=== PATIENT | female | born 1945 | race Caucasian/White ===

== ENCOUNTER 2016-09-24 14:24 | Observation (INO) | payer MEDICARE, OTHER ==
[~2016-09-24] VITALS: Ht 149.9 cm; Wt 56.2 kg
[2016-09-24 16:34] LABS: ADD SCAN DIFF NO
[2016-09-24 16:36] LABS: BASOPHILS % 0.4 % (0.0-2.0); EOSINOPHILS # 0.1 10^3/ul (0.0-0.5); EOSINOPHILS % 0.6 % (0.0-7.0); HEMATOCRIT 37.4 % (37.0-47.0); HEMOGLOBIN 12.4 g/dl (12.0-16.0); LYMPHOCYTES # 2.8 10^3/ul (0.8-2.9); LYMPHOCYTES % 27.2 % (15.0-51.0); MEAN CORPUSCULAR HEMOGLOBIN 28.8 pg (29.0-33.0); MEAN CORPUSCULAR HGB CONC 33.2 g/dl (32.0-37.0); MEAN PLATELET VOLUME 9.5 fl (7.4-10.4); MONOCYTE # 0.6 10^3/ul (0.3-0.9); MONOCYTES % 5.7 % (0.0-11.0); NEUTROPHIL # 6.7 10^3/ul (1.6-7.5); NEUTROPHILS % 65.8 % (39.0-77.0); PLATELET COUNT 326 10^3/UL (140-415); WHITE BLOOD COUNT 10.2 10^3/ul (4.8-10.8)
[2016-09-24 16:45] LABS: INR 0.93; PROTIME 12.5 Sec (12.2-14.2)
[2016-09-24 16:46] LABS: PARTIAL THROMBOPLASTIN TIME 27.9 Sec (25.0-35.0)
[2016-09-24 16:50] LABS: CHLORIDE 106 mmol/L (97-110)
[2016-09-24 16:51] LABS: POTASSIUM 4.1 mmol/L (3.5-5.1); SODIUM 145 mmol/L (135-144)
[2016-09-24 16:53] LABS: CREATININE 0.66 mg/dl (0.44-1.00)
--- NOTE | 2016-09-24 16:53 | RADRPT ---
PROCEDURE: XR Chest. CLINICAL INDICATION: Chest pain. TECHNIQUE: Single frontal view. COMPARISON: None. FINDINGS: There is mild bilateral interstitial pulmonary disease in the mid and lower lung zones. The lungs a re otherwise clear. The heart size is normal. There is no pleural effusion. There is no pneumothorax. IMPRESSION: 1. Mild interstitial disease bilaterally in the mid and lower lung zones. This may indicate pulmon braulio edema. Clinical correlation is advised. 2. Otherwise normal chest x-ray. RPTAT: QQ .Mitchel Rodriguez MD, MD Date Time Electronically viewed and signed by .Mitchel Rodriguez MD, MD on 09/24/2016 16:53 .R/
[2016-09-24 16:54] LABS: ANION GAP 14 (8-16); BLOOD UREA NITROGEN 18 mg/dl (7-20); CALCIUM 10.8 mg/dl (8.4-10.2); CARBON DIOXIDE 29 mmol/L (21-31); GLUCOSE 112 mg/dl (70-220)
[2016-09-24] MEDS ORDERED: AMIT50TA3 PO (17:22)
[2016-09-24] MEDS ORDERED: MECL-90 PO (17:23)
[2016-09-24] MEDS ORDERED: TRAZ50TA18 PO (17:24)
[2016-09-24] MEDS ORDERED: PRAV40TA76 PO (17:24)
[2016-09-24 17:32] LABS: TROPONIN-I < 0.012 ng/ml (0.00-0.12)
--- NOTE | 2016-09-24 18:21 | RADRPT ---
PROCEDURE: CT Brain without. CLINICAL INDICATION: Dizziness. TECHNIQUE: A CT of the brain was performed on multidetector high-resolution CT scanner utilizing a xial sections from the skull base through the vertex without contrast. The scan was reviewed in sof t tissue brain and high frequency resolution bone algorithm windows. Images were reviewed on a high -resolution PACS workstation. One or more the following does reduction techniques were utilized: Aut omated exposure control, adjustment of the mA/ or kV according to patient's size, or use of iterativ e reconstruction technique. The exam CTDI = 39.3 mGy and the DLP = 554.95 mGy-cm. COMPARISON: None available. FINDINGS: The ventricles and sulci are mildly prominent indicative of volume loss. There is mild cerebellar vo lume loss. There is no intracranial hemorrhage or midline shift. No abnormal intra-axial or extra- axial fluid collections are seen. The gutierrez/white matter differentiation is preserved. There is a 9 x 6 x 9 mm(AP x transverse x craniocaudal) calcified mass along the left side of the anterior falx c erebri which may represent a calcified meningioma. There is minimal mass effect on adjacent left fr ontal lobe. There are mild scattered foci of hypoattenuation in the white matter, which are nonspecific in etiol ogy but likely reflect chronic small vessel ischemic changes. There are mild intracranial vascular calcifications consistent with atherosclerosis. The visualized paranasal sinuses small mucoid secret ion in the left sphenoid sinus. The mastoid air cells are essentially clear. IMPRESSION: 1. A 9 mm calcified mass along the left side of the anterior falx cerebri which may represent a calc ified meningioma. Minimal mass effect on adjacent left frontal lobe. 2. No acute intracranial hemorrhage or transcortical infarction. 3. Mild intracranial atherosclerosis and chronic small vessel ischemic changes. 4. Mild generalized cerebral volume loss. RPTAT: HH .Nathan Crane MD, MD Date Time Electronically viewed and signed by .Nathan Crane MD, MD on 09/24/2016 18:21 .N/
[2016-09-24 18:30] VITALS: TEMP 98
[2016-09-24] MEDS ORDERED: SOD CHLORIDE 0.9% 1,000 ML IV ONE (18:30)
[2016-09-24] MEDS ORDERED: HYDROCODONE/APAP (7.5/325) TAB PO ONE (19:00)
--- NOTE | 2016-09-24 20:11 | HP ---
Date/Time of Note Date/Time of Note DATE: 09/24/16 TIME: 20:11 Assessment/Plan VTE Prophylaxis VTE Prophylaxis Intervention: ambulation, anti-embolic stocking Assessment/Plan Assessment/Plan 1) Dizziness - Admit to Tele for 24 hours of cardiac monitoring, then to [facility] if no significant findings. - CONSULT: Neuro - Message left for Dr. Novak at [phone] 2) Abnormal finding on Brain CT (doubt is it the cause of her symptoms, suspect incidental finding) 3) GERD - Continue Pantoprazole 4) Anxiety - Continue Home Meds: Trazodone and Amitryptiline. (Stopping them abruptly may add to her dizziness.) 5) Microscopic Hematuria with recent history of same - asymptomatic - Urine Culture pending HPI/ROS Admit Date/Time Admit Date/Time Hx of Present Illness Patient presents to the Emergency Department with complaint of a headache for 4 days. As she walks, her head will be pulled to one side or the other. Per ER Physician, her work-up was completely negative, except for an incidental finding of a 9mm calcification in the brain. He doubts that this is the source of her dizziness, but recommends admission for a Neurology Consult. Patient tells me that a couple of years ago, she had the same thing, for the first time, and was told it was an inner ear issue. Since the first episode, patient has occasional symptoms and takes Meclizine for them. This time, her symptoms have been more frequent and worsening over the past week. The first time she had the dizziness this week, she felt nauseated and vomited once. When she has the dizziness, her vision will get wavy lines in it. No current vision changes. Mild headache right now. Feels dizzy. History is obtained first, verbal from Dr. Wood, and then through a combination machine tender at patient's bedside. ROS Constitutional: No chills, No febrile Eyes: visual change (wavy lines in vision when she gets dizzy) ENT: No congestion, No dysphagia, No sore throat Respiratory: No cough, No shortness of breath Cardiovascular: lightheadedness, No chest pain, No edema, No palpitations Gastrointestinal: constipation (earlier this week), nausea (1 week ago. Not presently), other (Pain in epigastrium (where she points). States that if she presses on that area, she feels a pain in her right shoulder and right upper back.), vomiting (Once, about a week ago when her dizziness got worse), No diarrhea Genitourinary: hematuria (No visible blood, but 2 to 3 months ago, blood was found in her urine.), No discharge, No dysuria, No flank pain Musculoskeletal: back pain (Minimal, chronic pain mid-back. No change.), neck pain (Muscles in her neck are a bit tight), other (Mentions trigger fingers: 3rd digits bilaterally), No restricted range of motion Skin: No pruritis, No rash Neurologic: dizziness, headache, other (Moth hands feel numb. No shooting pains in the extremities.), No confusion, No focal-weakness, No seizure, No syncope Endocrine: No polydypsia, No polyuria Lymphatic: No adenopathy, No tender nodes Psychological: anxiety, No confusion Immunologic: No pruritis, No rhinitis PMH/Family/Social Past Medical History Medical History: GERD, other (Anxiety) Past Surgical History Past Surgical Hx: other (VALENTE, 1SO) Family History Significant Family History: no pertinent family hx Social History Alcohol Use: none Smoking Status: Current some day smoker Drug Use: none Exam/Review of Systems Vital Signs Vitals Vital Signs Date Time Temp Pulse Resp B/P Pulse Ox O2 Delivery O2 Flow Rate FiO2 09/24/16 18:30 98.0 89 20 146/96 99 Room Air Exam Constitutional: alert, oriented, well developed Psych: nl mood/affect Head: atraumatic, normocephalic Eyes: nl conjunctiva, nl sclera ENMT: mucosa pink and moist, nl external ears & nose, nl lips & teeth Neck: non-tender, supple Respiratory: clear to auscultation, normal air movement Cardiovascular: nl pulses, regular rate and rhythm Gastrointestinal: nl liver, spleen, non-tender, soft Musculoskeletal: nl extremities to inspection Extremities: normal pulses Neurological: [employer] II-XII intact, DTR's symmetric, nl mental status, nl speech, nl strength Skin: nl turgor (Normal moisture and temperature. Novisible rash) Lymph: nl lymph nodes (Cervical) Labs Result Diagram: 09/24/16 1620 09/24/16 1620 Procedures Procedures RADIOLOGY: PROCEDURE: CT Brain without. CLINICAL INDICATION: Dizziness. TECHNIQUE: A CT of the brain was performed on multidetector high-resolution CT scanner utilizing axial sections from the skull base through the vertex without contrast. The scan was reviewed in soft tissue brain and high frequency resolution bone algorithm windows. Images were reviewed on a high- resolution PACS workstation. One or more the following does reduction techniques were utilized: Automated exposure control, adjustment of the mA/ or kV according to patient's size, or use of iterative reconstruction technique. The exam CTDI = 39.3 mGy and the DLP = 554.95 mGy-cm. COMPARISON: None available. FINDINGS: The ventricles and sulci are mildly prominent indicative of volume loss. There is mild cerebellar volume loss. There is no intracranial hemorrhage or midline shift. No abnormal intra-axial or extra-axial fluid collections are seen. The gutierrez/white matter differentiation is preserved. There is a 9 x 6 x 9 mm(AP x transverse x craniocaudal) calcified mass along the left side of the anterior falx cerebri which may represent a calcified meningioma. There is minimal mass effect on adjacent left frontal lobe. There are mild scattered foci of hypoattenuation in the white matter, which are nonspecific in etiology but likely reflect chronic small vessel ischemic changes. There are mild intracranial vascular calcifications consistent with atherosclerosis. The visualized paranasal sinuses small mucoid secretion in the left sphenoid sinus. The mastoid air cells are essentially clear. IMPRESSION: 1. A 9 mm calcified mass along the left side of the anterior falx cerebri which may represent a calcified meningioma. Minimal mass effect on adjacent left frontal lobe. 2. No acute intracranial hemorrhage or transcortical infarction. 3. Mild intracranial atherosclerosis and chronic small vessel ischemic changes. 4. Mild generalized cerebral volume loss. PROCEDURE: XR Chest. CLINICAL INDICATION: Chest pain. TECHNIQUE: Single frontal view. COMPARISON: None. FINDINGS: There is mild bilateral interstitial pulmonary disease in the mid and lower lung zones. The lungs are otherwise clear. The heart size is normal. There is no pleural effusion. There is no pneumothorax. IMPRESSION: 1. Mild interstitial disease bilaterally in the mid and lower lung zones. This may indicate pulmonary edema. Clinical correlation is advised. 2. Otherwise normal chest x-ray. CHRISTOPHER MARTINEZ DO Sep 24, 2016 20:11
[2016-09-24] MEDS ORDERED: ONDANSETRON 4 MG INJ IV PRN ×2 (20:30→22:00)
[2016-09-24] MEDS ORDERED: ACETAMINOPHEN 325 MG TAB PO PRN ×2 (20:30→22:00)
[2016-09-24 21:12] LABS: ADD UMIC YES; URINE BILIRUBIN (Dip) NEGATIVE (NEGATIVE); URINE BLOOD (Dip) 2+ (NEGATIVE); URINE COLOR LT. YELLOW (YELLOW); URINE GLUCOSE (Dip) NEGATIVE (NEGATIVE); URINE KETONES (Dip) NEGATIVE (NEGATIVE); URINE LEUKOCYTE ESTERASE (Dip) 1+ (NEGATIVE); URINE NITRITE (Dip) NEGATIVE (NEGATIVE); URINE TOTAL PROTEIN (Dip) NEGATIVE (NEGATIVE); URINE UROBILINOGEN (Dip) 0.2 E.U./dL (0.1-1.0)
[2016-09-24 21:40] LABS: SQUAMOUS EPITHELIAL CELL,UR FEW; URINE RBCS 0-2 /HPF (0)
[2016-09-24 22:00] VITALS: BP 144/72; PULSE 67; RESP 18; Ht 149.9 cm; Wt 56.2 kg
[2016-09-24] MEDS ORDERED: ONDANSETRON 4 MG TAB PO PRN (22:00)
[2016-09-24] MEDS ORDERED: NITROGLYCERIN (SL) 0.4 MG TAB SL PRN (22:00)
[2016-09-24] MEDS ORDERED: NACL 0.9% 3 ML SYG IV SCH (22:00)
[2016-09-24 22:55] VITALS: BP 144/72; RESP 18
[2016-09-24] MEDS ORDERED: AMITRIPTYLINE 50 MG TAB PO SCH (23:00)
[2016-09-24] MEDS: traZODone 50 MG TAB PO SCH (23:14)
[2016-09-24] MEDS: AMITRIPTYLINE 25 MG TAB PO SCH (23:14)
--- NOTE | 2016-09-24 23:52 | ERA ---
ER Documentation Chief Complaint Date/Time DATE: 09/24/16 TIME: 23:43 Chief Complaint HEADACHE AND DIZZINESS WITH NO NEURO DEFICIT. NO RECENT INJURY. HPI This 71-year-old female presents to the ER with intermittent headache on and off for 4 days. Headache is in different locations at different times and is intermittent. She is also having a feeling that she is falling to one side or the other all the side changes. She says that is very difficult to ambulate because of this dizziness that she does not quite describe as vertigo. Denies any chest pain shortness of breath fever chills. Denies any focal weakness. ROS All systems reviewed and are negative except as per history of present illness. Medications Home Meds Reported Medications Pravastatin Sodium* (Pravastatin Sodium*) 40 Mg Tablet, 40 MG PO DAILY, TAB 09/24/16 Trazodone Hcl* (Trazodone Hcl*) 50 Mg Tablet, 50 MG PO QHS, #30 TAB 09/24/16 Meclizine Hcl* (Bonine*) 25 Mg Tab.chew, 25 MG PO DAILY Y for VERTIGO, TAB.CHEW 09/24/16 Amitriptyline Hcl* (Amitriptyline Hcl*) 50 Mg Tablet, 50 MG PO QHS, #30 TAB 09/24/16 Allergies Allergies: Coded Allergies: No Known Allergy (Unverified , 09/24/16) PMhx/Soc History of Surgery: No Anesthesia Reaction: No Hx Neurological Disorder: No Hx Respiratory Disorders: No Hx Cardiac Disorders: Yes (HTN) Hx Psychiatric Problems: Yes (DEPRESSION) Hx Miscellaneous Medical Probl: No Hx Alcohol Use: No Hx Substance Use: No Hx Tobacco Use: Yes Smoking Status: Current some day smoker Physical Exam Vitals Vital Signs Date Time Temp Pulse Resp B/P Pulse Ox O2 Delivery O2 Flow Rate FiO2 09/24/16 20:00 91 18 139/80 98 Room Air 09/24/16 18:30 98.0 89 20 146/96 99 Room Air 09/24/16 14:28 98.0 80 20 148/82 98 Physical Exam Const: [] No distress Head: Atraumatic Eyes: Normal Conjunctiva, EOMI, CHARLY ENT: Normal External Ears, Nose and Mouth. Tympanic membranes clear bilaterally Neck: Full range of motion..~ No meningismus. Resp: Clear to auscultation bilaterally Cardio: Regular rate and rhythm, no murmurs Abd: Soft, non tender, non distended. Normal bowel sounds Skin: No petechiae or rashes Back: No midline or flank tenderness Ext: No cyanosis, or edema Neur: Awake and alert and oriented 3, cranial nerves II through XII intact, no cerebellar deficits, gait not tested because patient did not want to Psych: Normal Mood and Affect Result Diagram: 09/24/16 1620 09/24/16 1620 Results 24 hrs Laboratory Tests Test 09/24/16 16:20 09/24/16 18:30 Activated Partial Thromboplast Time 27.9Sec Anion Gap 14 Basophils # 0.010^3/ul Basophils % 0.4% Blood Urea Nitrogen 18mg/dl Calcium Level 10.8mg/dl Carbon Dioxide Level 29mmol/L Chloride Level 106mmol/L Creatinine 0.66mg/dl Eosinophils # 0.110^3/ul Eosinophils % 0.6% Glucose Level 112mg/dl Hematocrit 37.4% Hemoglobin 12.4g/dl INR International Normalized Ratio 0.93 Lymphocytes # 2.810^3/ul Lymphocytes % 27.2% Mean Corpuscular Hemoglobin 28.8pg Mean Corpuscular Hemoglobin Concent 33.2g/dl Mean Corpuscular Volume 87.0fl Mean Platelet Volume 9.5fl Monocytes # 0.610^3/ul Monocytes % 5.7% Neutrophils # 6.710^3/ul Neutrophils % 65.8% Nucleated Red Blood Cells # 0.010^3/ul Nucleated Red Blood Cells % 0.0/100WBC Platelet Count 89601^3/UL Potassium Level 4.1mmol/L Prothrombin Time 12.5Sec Prothrombin Time Ratio 1.0 Red Blood Count 4.3010^6/ul Red Cell Distribution Width 12.0% Sodium Level 145mmol/L Troponin I < 0.012ng/ml White Blood Count 10.210^3/ul Urine Bilirubin NEGATIVE Urine Calcium Oxalate Crystals FEW Urine Clarity CLEAR Urine Color LT. YELLOW Urine Glucose NEGATIVE% Urine Hemoglobin 2+ Urine Ketones NEGATIVE Urine Leukocyte Esterase 1+ Urine Microscopic RBC 0-2/HPF Urine Microscopic WBC 0-2/HPF Urine Nitrite NEGATIVE Urine Specific [place] 1.020 Urine Squamous Epithelial Cells FEW Urine Total Protein NEGATIVE Urine Urobilinogen 0.2 E.U./dL Urine pH 6.0 Current Medications Medications (Trade) Dose Ordered Sig/Bridgett Route PRN Reason Start Time Stop Time Status Last Admin Dose Admin Sodium Chloride (NS) 1,000 ml @ 1,000 mls/hr Q1H ONCE IV 09/24/16 18:30 09/24/16 19:29 DC 09/24/16 19:15 Acetaminophen/ Hydrocodone Bitart ([place] (7.5-325)) 1 tab ONCE ONCE PO 09/24/16 19:00 09/24/16 19:01 DC 09/24/16 19:25 Procedures/MDM 71-year-old female with difficulty ambulating secondary to dizziness and falling sideways associated with a headache. She incidentally has a 9 mm lesion with some mass-effect. I spoke with Dr. Sherman, neurosurgery on-call who believes this is an incidental finding that does not describe her symptoms in any way. We have the patient should be admitted for neurology consult and monitoring. I do not currently suspect cerebrovascular accident. Patient was given [place] for her headache which greatly improved her headache. There is no hemorrhage on CT. no signs of acute coronary syndrome or cardiac defects. I am admitting to the patient to Dr. Lyman, for the neurological evaluation. CT head interpretation: 9 mm calcified lesion in the anterior cerebral falx with minimal mass-effect. No hemorrhage no obvious ischemic stroke, no skull fracture. Chest x-ray interpretation: No acute process, I see no infiltrate, no pneumothorax, no pulmonary edema, no fractures EKG interpretation: Normal sinus rhythm rate of 68, normal axis, single PVC, no ST or T-wave changes concerning for acute ischemia monitor tech interpretation: Normal sinus rhythm without arrhythmia Departure Diagnosis: Primary Impression: Brain lesion Additional Impressions: Dizziness Headache Condition: Stable JARETJASONEDIS GALO Sep 24, 2016 23:51
[2016-09-25] MEDS: PANTOPRAZOLE (EC) 40 MG TAB PO SCH (06:08)
[2016-09-25 08:02] VITALS: BP 137/72; RESP 18
[2016-09-25] MEDS: MECLIZINE 12.5 MG TAB PO SCH ×4 (09:30→20:36)
--- NOTE | 2016-09-25 09:31 | CONS ---
Date/Time of Note Date/Time of Note DATE: 09/25/16 TIME: 09:29 Copies To: Additional comments: neuro consult dictated BPPV, start meclizine OTC, PT with vestibular exercises Meningioma on CT, will get MRI OK for d/c after MRI BEVERLEY MALLOY MD Sep 25, 2016 09:31
--- NOTE | 2016-09-25 10:59 | CONS ---
DATE OF ADMISSION: 09/24/2016 DATE OF CONSULTATION: 09/25/2016 TYPE OF CONSULTATION: Neurology. Thank you, Dr. Lyman, for your kind referral for evaluation of vertigo. HISTORY OF PRESENT ILLNESS: The patient is a 71-year-old lady presented with 3 to 4 days of vertigo present constantly but worsening with movements. No hearing problems or tinnitus. No weakness, nu mbness anywhere in the body. No diplopia, dysarthria, dysphagia. The patient had similar episode o f vertigo 7 to 8 years ago and since that time she is taking meclizine every several days preventati vely. She was told that it was related to calcifications in the inner ear at that time. MEDICATIONS: The patient's home medications: 1. Pravastatin 40. 2. Amitriptyline 50. 3. Trazodone 50. 4. Meclizine 25 once per day, but she does not take it on a regular basis. ALLERGIES: NONE. SOCIAL HISTORY: Cigarette smoker. No alcohol or drug use. FAMILY HISTORY: Noncontributory. REVIEW OF SYSTEMS: Patient also complains of chronic headache at least for 15 years since her arriv al to the [facility], usually bilateral occipital or left-sided at times throbbing, at times pres sure pain which is present essentially daily. Usually no nausea with the headache may occur with sev ere headache, nausea and photophobia. MEDICATIONS: Here she is on 1. Pantoprazole. 2. Elavil 50. 3. Trazodone 50. She had CAT scan of the head which shows presence of calcified meningioma 9 mm on the left side of t he anterior falx. No mass effect. Chest x-ray: Mild interstitial disease mid and lower lung zones, may indicate pulmonary edema but c linical correlation is recommended. Her labs show normal CBC, essentially normal basic metabolic pa kadi: Sodium 145, calcium 11, normal PT, PTT. Urinalysis 1+ leukocyte esterase, 2+ hemoglobin. PHYSICAL EXAMINATION: VITAL SIGNS: On examination 98.2 temperature, pulse 79, 18 respirations, blood pressure 137/72. GENERAL: Not in acute distress, lying in bed. HEENT: Normocephalic, atraumatic head. NECK: No carotid bruits. No thyromegaly. LUNGS: Clear to auscultation bilaterally. CARDIAC: Normal cardiac rhythm and sounds. ABDOMEN: Soft, nontender. EXTREMITIES: No cyanosis, clubbing or edema. NEUROLOGIC: She is awake, alert, and oriented x3 with fluent speech. Cranial nerve examination vladimir ws intact visual ayala bilaterally. Pupils round, reactive to light from 4 to 2 mm bilaterally. E xtraocular movements intact without nystagmus. Symmetrical face. Preserved facial strength and sen sation. Tongue is in midline. Palate elevates symmetrically. Motor strength examination preserved in all extremities. Normal bulk, tone, and strength. Sensory examination grossly intact to light touch and pain. Deep tendon reflexes 2+ upper extremities, 3 lower extremities. Downgoing toes jessica aterally. Coordination preserved on [id number] testing. During my examination, the patient d eveloped generalized tremulousness, stating that she is somewhat anxious. Bronson-Hallpike maneuver was performed and produced vertigo when patient was seated up from supine posi tion with her head turned to either side but more severe when the head was turned to the left, also with short lasting rotatory nystagmus, beating to the left. IMPRESSION: Episodic vertigo, similar episode 7 to 8 years ago, last started about 4 days ago. I w ould increase meclizine, make it 2 to 3 times per day. The patient was uncomfortable with Bronson-Hallp chandrika maneuver because of the dizziness, so I did not perform any repositioning maneuver. I would get physical therapy to teach her repositioning maneuvers and try to perform one. Will increase mecliz ine, as I mentioned. Newly diagnosed falx meningioma. I would obtain MRI with contrast for better visualization and to h ave her baseline, it seems to be calcified, slowly growing so probably she would need some followup imaging done in 6 to 12 months. From my perspective, the patient could be discharged home after MRI with stronger dose of meclizine. Thank you very much for this interesting consult. Dictated By: BEVERLEY REEVES/FREDDIE Conf#: [id number] DID#: [id number]
[2016-09-25] MEDS ORDERED: LORAZEPAM 0.5 MG TAB PO PRN (16:30)
[2016-09-25] MEDS ORDERED: LORAZEPAM 2 MG INJ IV PRN (16:30)
--- NOTE | 2016-09-25 18:21 | RADRPT ---
PROCEDURE: MRI Brain without and with contrast. CLINICAL INDICATION: Vertigo, meningioma TECHNIQUE: Multiplanar MRI of the brain without and with contrast was performed on a 3.0 T scanner with the following sequences obtained: T1-weighted, T2-weighted/FLAIR, diffusion weighted (with ADC map), GRE, postcontrast T1-weighted. 810 cc Magnevist intravenous contrast administered. COMPARISON: CT brain 09/24/2016 FINDINGS: No acute/recent ischemic infarction or intracranial hemorrhage / blood degradation products are iden tified. No extra-axial fluid collection is seen. There is a small extra-axial dural-based lesion along the anterior left aspect of the falx, which en hances, and has intermediate T1-weighted and decreased T2-weighted signal intensity with relative ingram sceptibility on GRE. It measures 9 x 6 x 8 mm (AP x transverse x CC) and is compatible with a menin gioma which may contain calcifications. No significant mass effect is identified. There is no midl ine shift. The ventricles and sulci are mildly enlarged, compatible with volume loss. Mild areas of increased T2 / FLAIR signal intensity are present in the periventricular and deep whit e matter, nonspecific but likely related to chronic small vessel ischemic changes. Flow voids are identified in the proximal intracranial arteries and dural sinuses suggesting patency . Secretions noted in the left sphenoid sinus. IMPRESSION: 1. No evidence of acute intracranial pathology. 2. 9 mm anterior left parafalcine meningioma. 3. Mild volume loss, with mild chronic small vessel ischemic changes. RPTAT: TT .Neil Real MD, Date Time Electronically viewed and signed by .Neil Real MD, on 09/25/2016 18:21 .O/
[2016-09-25 19:00] VITALS: BP 131/73; RESP 18
--- NOTE | 2016-09-25 20:03 | PN ---
Date/Time of Note Date/Time of Note DATE: 09/25/16 TIME: 20:00 Assessment/Plan VTE Prophylaxis VTE Prophylaxis Intervention: ambulation, SCD's Lines/Catheters IV Catheter Type (from Nrs): Saline Lock Urinary Cath still in place: No Assessment/Plan Assessment/Plan 71 yo F with 1 Dizziness 2/2 BPPV, per neurology start meclizine OTC, PT with vestibular exercises 2. Meningioma on CT MRI pending, f/u findings 3. GERD: home meds 4. Chronic anxiety: PRN ativan , home meds Supportive care. Subjective 24 Hr Interval Summary Free Text/Dictation Patient seen and examined. reports dizziness is mildly improved MRI still pending Exam/Review of Systems Vital Signs Vitals Vital Signs Date Time Temp Pulse Resp B/P Pulse Ox O2 Delivery O2 Flow Rate FiO2 09/25/16 08:02 98.2 79 18 137/72 99 09/24/16 22:00 Room Air Intake and Output 09/24/16 09/24/16 09/25/16 15:00 23:00 07:00 Intake Total 240 ml Output Total 400 ml Balance -160 ml Exam GENERAL: Patient is alert, oriented x 3, in no apparent distress; does not appear acutely or chronically ill. Patient is able to sit up unassisted.Patient makes good eye contact, is conversant, interactive, coherent. Patient appears calm and comfortable and is able to follow commands. Quite anxious however. HEENT: Oropharynx is clear. There is no carotid bruit, no masses. Patient's pupils are equal, round and reactive to light bilaterally. Extraocular motions are intact. There is no scleral icterus. There is no facial asymmetry. NECK: Supple. LUNGS: Clear to auscultation bilaterally with good air entry. No Wheezes or crackles. HEART: S1, S2. No murmur, gallops or rubs. Regular rate and rhythm. ABDOMEN: Soft, nontender. Normoactive bowel sounds. There are no stigmata of chronic liver disease. BACK: no costovertebral angle tenderness. GENITOURINARY: Deferred. EXTREMITIES: No edema. There is no cyanosis, clubbing. There are 2+ pulses bilaterally distally. NEUROLOGIC: The patient has no lateralizing signs. Cranial nerves II-XII are intact. SKIN: Otherwise, unremarkable. Results Result Diagram: 09/24/16 1620 09/24/16 1620 Medications Medications Current Medications Ondansetron HCl (Zofran Tab) 4 mg Q6H PRN PO NAUSEA AND/OR VOMITING; Start 09/24 at 22:00 Ondansetron HCl (Zofran Inj) 4 mg Q6H PRN IV NAUSEA AND/OR VOMITING; Start 09/24 at 22:00 Nitroglycerin (Nitroglycerin (Sl Tab) 0.4 Mg) 1 tab Q5M PRN SL CHEST PAIN; Start 09/24/16 at 22:00 Acetaminophen (Tylenol Tab) 650 mg Q6H PRN PO PAIN LEVEL 1-3 OR FEVER; Start at 22:00 Pantoprazole (Protonix Tab) 40 mg DAILY@06 PO Last administered on 09/25/16 06: 08; Admin Dose 40 MG; Start 09/25/16 at 06:00 Trazodone HCl (Desyrel) 50 mg HS PO Last administered on 09/24/16 23:14; Admin Dose 50 MG; Start 09/24/16 at 22:30 Amitriptyline HCl (Elavil) 50 mg HS PO ; Start 09/24/16 at 23:30 Meclizine HCl (Antivert) 12.5 mg TID PO Last administered on 09/25/16 13:42; Admin Dose 12.5 MG; Start 09/25/16 at 09:30 Lorazepam (Ativan) 0.5 mg Q8H PRN IV anxiety; Start 09/25/16 at 16:30 PRINCESS TRACY Sep 25, 2016 20:03
[2016-09-25] MEDS: traZODone 50 MG TAB PO SCH (20:37)
[2016-09-25] MEDS: AMITRIPTYLINE 25 MG TAB PO SCH (20:37)
[2016-09-26 06:04] LABS: ADD SCAN DIFF NO
[2016-09-26 06:20] LABS: ALBUMIN 3.9 g/dl (3.3-4.9); POTASSIUM 4.2 mmol/L (3.5-5.1)
[2016-09-26 06:22] LABS: BILIRUBIN,INDIRECT 0.3 mg/dl (0-1.1); BILIRUBIN,TOTAL 0.3 mg/dl (0.2-1.3)
[2016-09-26 06:23] LABS: CREATININE 0.7 mg/dl (0.44-1.00); TOTAL PROTEIN 6.6 g/dl (6.1-8.1)
[2016-09-26] MEDS: PANTOPRAZOLE (EC) 40 MG TAB PO SCH (06:23)
[2016-09-26 06:24] LABS: CALCIUM 11.1 mg/dl (8.4-10.2); PHOSPHORUS 3.9 mg/dl (2.5-4.9)
[2016-09-26 06:31] LABS: BASOPHILS % 0.3 % (0.0-2.0); EOSINOPHILS # 0.2 10^3/ul (0.0-0.5); EOSINOPHILS % 1.7 % (0.0-7.0); HEMATOCRIT 37.9 % (37.0-47.0); HEMOGLOBIN 12.5 g/dl (12.0-16.0); LYMPHOCYTES # 3.4 10^3/ul (0.8-2.9); MEAN CORPUSCULAR HEMOGLOBIN 28.7 pg (29.0-33.0); MEAN CORPUSCULAR VOLUME 86.9 fl (82.0-101.0); MEAN PLATELET VOLUME 9.7 fl (7.4-10.4); MONOCYTE # 0.7 10^3/ul (0.3-0.9); MONOCYTES % 7.8 % (0.0-11.0); NEUTROPHIL # 4.9 10^3/ul (1.6-7.5); NEUTROPHILS % 52.8 % (39.0-77.0); PLATELET COUNT 287 10^3/UL (140-415); RED BLOOD COUNT 4.36 10^6/ul (4.20-5.40); RED CELL DISTRIBUTION WIDTH 11.8 % (11.5-14.5); WHITE BLOOD COUNT 9.2 10^3/ul (4.8-10.8)
[2016-09-26 08:01] VITALS: BP 124/68; RESP 18
[2016-09-26] MEDS: MECLIZINE 12.5 MG TAB PO SCH ×2 (08:21→13:45)
[2016-09-26] MEDS ORDERED: MECL12.574 PO (12:25)
--- NOTE | 2016-09-26 12:34 | PDOCDIS ---
Discharge Instructions DIAGNOSIS Discharge Diagnosis: Benign positional Vertigo CONDITION Patient Condition: Stable HOME CARE INSTRUCTIONS: Diet Instructions: Low Fat /Cholesterol FOLLOW UP/APPOINTMENTS Appointments Fall precautions / FWW OTHER ORDERS: Other Orders: Go to Dr Owens's office right away for ENT review Name, Degree: Curtis Owens MD Specialty: Ear Nose Throat Comments: Office Address: [address] [place] [address] Office Office PRINCESS TRACY Sep 26, 2016 12:33
== END 2016-09-26 14:10 | disposition home or self-care (01) ==
LOC: E/R 14:24 → UNDOADMIN 20:17 → MS2 20:17 → INTOOBSV 20:19 → MS2 22:02
PROVIDERS: ADMIT Family Medicine; ATTEND Family Medicine
DX: R42 Dizziness and giddiness (principal)
CPT/HCPCS: 70450; 70553; 71010; 80048; 80076; 81001; 83735; 84100; 84484; 85025; 85610; 85730; 93005; 97161; 99285; G0378; J7030; 81003; 99217

== ENCOUNTER 2019-01-17 11:12 | Emergency (ER) | payer MEDICARE, OTHER ==
[~2019-01-17] VITALS: Ht 152.4 cm; Wt 60.7 kg
[~2019-01-17 11:12] MED LIST: AMIT50TA3 PO; MECL12.574 PO; PRAV40TA76 PO; TRAZ-111 PO
[2019-01-17 11:20] VITALS: BP 144/71; PULSE 72; RESP 18; Ht 152.4 cm; Wt 60.7 kg
[2019-01-17] MEDS ORDERED: KETOROLAC 15 MG INJ IM STA (12:44)
--- NOTE | 2019-01-17 12:48 | ERD ---
ER Documentation Chief Complaint Chief Complaint left buttucks pain radiating down leg x4 days HPI 73-year-old female, with history of chronic lumbar pain, presents to the emergency department, complaining of acute exacerbation the last 4 days in an absence of trauma. The pain is sharp, constant, 7/10, worsened by lateral rotation and flexion. The patient denies distal weakness, numbness or tingling. No reports of fever, chills, abdominal pain or urinary symptoms. The patient has been taking gabapentin without improvement of the symptoms. ROS All systems reviewed and are negative except as per history of present illness. Medications Home Meds Active Scripts Acetaminophen* (Tylenol*) 325 Mg Tablet, 1 TAB PO Q8 PRN for PAIN AND OR ELEVATED TEMP, #20 TAB Prov:TORITO BEARD MD 01/17/19 Baclofen* (Baclofen*) 10 Mg Tablet, 10 MG PO QHS PRN for MUSCLE SPASMS, #10 TAB Prov:TORITO BEARD MD 01/17/19 Hydrocodone/Acetaminophen ([place] 5-325 Tablet) 1 Each Tablet, 1 TAB PO BID PRN for PAIN, #10 TAB Prov:TORITO BEARD MD 01/17/19 Meclizine Hcl* (Antivert*) 12.5 Mg Tab, 12.5 MG PO TID for 30 Days, TAB Prov:PRINCESS TRACY 09/26/16 Reported Medications Pravastatin Sodium* (Pravastatin Sodium*) 40 Mg Tablet, 40 MG PO DAILY, TAB 09/24/16 Trazodone Hcl* (Trazodone Hcl*) 50 Mg Tablet, 50 MG PO QHS, #30 TAB 09/24/16 Amitriptyline Hcl* (Amitriptyline Hcl*) 50 Mg Tablet, 50 MG PO QHS, #30 TAB 09/24/16 Allergies Allergies: Coded Allergies: No Known Allergy (Unverified , 09/24/16) PMhx/Soc Medical and Surgical Hx: pt denies Surgical Hx History of Surgery: No Anesthesia Reaction: No Hx Neurological Disorder: No Hx Respiratory Disorders: No Hx Cardiac Disorders: Yes (HTN) Hx Psychiatric Problems: Yes (DEPRESSION) Hx Miscellaneous Medical Probl: Yes (DIZZINESS, GERD, ANXIETY) Hx Alcohol Use: No Hx Substance Use: No Hx Tobacco Use: Yes Smoking Status: Current every day smoker FmHx Family History: No diabetes, No coronary disease Physical Exam Vitals Vital Signs Date Temp Pulse Resp B/P (MAP) Pulse Ox O2 O2 Flow FiO2 Time Delivery Rate 01/17/19 98.1 72 18 144/71 97 11:20 (95) Physical Exam Patient is in no acute distress, vital signs stable. Alert and fully oriented. EYES: PERRLA, EOMI, Sclera and conjunctiva appear normal. EARS: Canals clear, tympanic membranes WNL THROAT: Normal oropharynx. NECK: Supple, No lymphadenopathy. Full ROM without pain or tenderness. HEART: RRR, no rubs, murmurs, clicks or gallops. LUNGS: Clear to auscultation. ABDOMEN: Soft, non-tender without masses or hepatosplenomegaly. EXTREMITIES: No edema bilaterally. BACK: Normal inspection, no bruises, no rashes, no deformity, decreased range of motion for lateral rotation and flexion. No vertebral tenderness, bilateral lower muscle spasm. NEURO: Cranial nerves grossly intact, no motor or sensory deficit Results 24 hrs Laboratory Tests Test 01/17/19 12:58 Bedside Urine pH (LAB) 5.5 Bedside Urine Protein (LAB) Negative Bedside Urine Glucose (UA) Negative Bedside Urine Ketones (LAB) Negative Bedside Urine Blood 2+ Bedside Urine Nitrite (LAB) Negative Bedside Urine Leukocyte Esterase (L Negative Current Medications Medications Dose Sig/[place] Start Time Status Last (Trade) Ordered Route PRN Stop Time Admin Dose Reason Admin Ketorolac 15 mg ONCE STAT 01/17/19 DC 01/17/19 Tromethamine IM 12:44 01/17/19 12:54 (Toradol) 12:47 DIAGNOSTIC IMAGING REPORT Patient: BLAS RICARDO : 1945 Age: 73 Sex: F MR #: [id number] DOS: 01/17/19 1244 Ordering MD: TORITO BEARD MD Location: [facility] Room/Bed: PROCEDURE: XR Lumbar Spine 3 Views. CLINICAL INDICATION: Low back pain. TECHNIQUE: Lumbar spine study including AP, lateral and coned L5-S1 views was performed. COMPARISON: No prior studies are available for comparison. FINDINGS: Mineralization: Osteopenia. Lordosis: Mild scoliosis convex to the left. Fractures: None. Bony lesions: None. Intervertebral disc heights: Mild intervertebral disc space narrowing from L1- L3. Facet joints: Facet arthrosis from L4-S1. Soft tissues: Calcified atherosclerosis in the aorta. Other: None. IMPRESSION: Osteopenia. Mild scoliosis. Mild degenerative disc disease from a L1-L3. 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 Calcified atherosclerosis in the aorta. If further characterization is needed CT or MRI could be helpful. If there is high clinical suspicion for traumatic injury, further evaluation with CT should be considered. Procedures/MDM At the time of discharge, patient nontoxic, ambulating, vital signs stable, no gross neurologic deficit. differential diagnosis include but not limited to: lumbar sprain/strain, sciatica, herniated disk, UTI less likely pyelo, kidney stone. Neurovascular exam grossly intact. no clinical findings suggestive of acute infectious process, no acute deformity, no edema, no rashes. Physical examination and clinical presentation consistent most likely with acute on chronic back pain with sciatica. During the ED course the patient received treatment with Toradol IM presenting overall improvement of the symptoms. Results and clinical impression discussed with the patient who agrees with management. The patient is stable to be treated outpatient and will be discharg ed home with recommendations and close monitoring The patient was informed that the evaluation in the emergency department has been done to rule out an acute emergency, therefore, chronic conditions like malignancy or autoimmune diseases have not been evaluated; therefore, the patient was instructed to follow up with the primary care provider in the next 48h. If symptoms persist, worsen or new symptoms develop, then patient should return to the ED immediately. Instructions explained and given to patient with acknowledgment and demonstrated understanding. Disclaimer: Inadvertent spelling and grammatical errors are likely due to E HR/dictation software use and do not reflect on the overall quality of patient care. Also, please note that the electronic time recorded on this note does not necessarily reflect the actual time of the patient encounter. Departure Diagnosis: Primary Impression: Acute exacerbation of chronic low back pain Condition: Stable Additional Instructions: Thank you very much for allowing us to participate in your care. Your health and safety is our top priority at [facility]. The evaluation in the emergency department has been done to rule out an acute emergency. Chronic, [id number] conditions may have not been evaluated; therefore, you need to follow up with a primary care provider in the next 48h. If symptoms persist, worsen or new symptoms develop, then patient should return to the ED immediately. Call your primary care doctor TOMORROW for an appointment during the next 2-4 days and bring all the information provided. Have prescriptions filled and follow precisely the directions on the label. If the symptoms get worse and your provider is unavailable, return to the Emergency Department immediately. TORITO BEARD MD Jan 17, 2019 12:48
[2019-01-17] MEDS ORDERED: BACL10TA PO (13:36)
[2019-01-17] MEDS ORDERED: ACET325T33 PO (13:36)
[2019-01-17] MEDS ORDERED: HYDR-4011 PO (13:36)
== END 2019-01-17 13:51 | disposition home or self-care (01) ==
LOC: FTE 11:12
DX: M54.5 Low back pain (principal); I10 Essential (primary) hypertension; F17.210 Nicotine dependence, cigarettes, uncomplicated
CPT/HCPCS: 72100; 81003; 96372; 99284; J1885